=== PATIENT | male | born 1985 | race African-American/Black ===

== ENCOUNTER 2017-05-25 05:55 | Emergency (ER) | payer SELFPAY ==
[~2017-05-25] VITALS: Ht 177.8 cm; Wt 81.6 kg
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
[2017-05-25 06:25] VITALS: BP 128/76
== END 2017-05-25 06:25 | disposition home or self-care (01) ==
LOC: ER 05:57
DX: K11.7 Disturbances of salivary secretion (principal); F17.210 Nicotine dependence, cigarettes, uncomplicated
CPT/HCPCS: 99283